=== PATIENT | female | born 1950 | race Caucasian/White ===

== ENCOUNTER 2021-08-26 12:40 | Emergency (ER) | payer OTHER ==
[2021-08-26 12:46] VITALS: BP 118/87; PULSE 75; TEMP 98.1; BMI 21.4
== END 2021-08-26 13:50 | disposition home or self-care (01) ==
LOC: FER 12:40
DX: R20.2 Paresthesia of skin (principal)
CPT/HCPCS: 99283-25

== ENCOUNTER 2024-09-24 12:32 | Emergency (ER) | payer OTHER ==
[2024-09-24 12:46] VITALS: BP 127/66; PULSE 78; RESP 16; TEMP 97.5; BMI 22.0
[2024-09-24] MEDS ORDERED: oxyCODONE HCL 5 MG TABLET ONE (13:35)
[2024-09-24] MEDS: oxyCODONE HCL 5 MG TABLET PO ONE (13:36)
== END 2024-09-24 14:52 | disposition home or self-care (01) ==
LOC: FER 12:32
PROC: 0PSPXZZ Reposition Right Metacarpal, External Approach (ICD-10-PCS; principal; 2024-09-24)
DX: S62.306A Unspecified fracture of fifth metacarpal bone, right hand, initial encounter for closed fracture (principal); W18.30XA Fall on same level, unspecified, initial encounter; Y92.009 Unspecified place in unspecified non-institutional (private) residence as the place of occurrence of the external cause
CPT/HCPCS: 73090-TC-RT-FY; 73110-TC-RT-FY; 73130-TC-RT-FY; 99283-25